=== PATIENT | male | born 1940 | race Caucasian/White ===

== ENCOUNTER 2020-05-08 09:10 | Emergency (ER) | payer MEDICARE, MEDICAID ==
[~2020-05-08] VITALS: Ht 172.7 cm; Wt 68.2 kg
[~2020-05-08 09:10] MED LIST: CALC500T62 PO; PRAV20TA4 PO; RANI150T7 PO; WARF2TAB30 PO
[2020-05-08 09:12] VITALS: BP 143/61
[2020-05-08 09:39] LABS: BASOPHILS % (AUTO) 0.2 % (0.0-2.0); EOSINOPHILS % (AUTO) 0 % (1.0-6.0); HEMATOCRIT 47.4 % (41-53); HEMOGLOBIN 16.1 g/dL (13.5-17.5); LYMPHOCYTES % (AUTO) 9.5 % (22.0-44.0); MEAN CORPUSCULAR HEMOGLOBIN 32.3 pg (26.0-34.0); MEAN CORPUSCULAR VOLUME 95 fL (80-100); MONOCYTES # (AUTO) 0.5 K/uL (0.1-1.0); MONOCYTES % (AUTO) 4.7 % (2.0-9.0); NEUTROPHILS # (AUTO) 8.7 K/uL (1.8-7.7); PLATELET COUNT (AUTO) 149 K/uL (150-450); RED BLOOD CELL COUNT(AUTO) 4.97 MIL/uL (4.50-5.90); RED CELL DISTRIBUTION WIDTH 13.8 % (11.5-14.5)
[2020-05-08 09:40] LABS: NEUTROPHILS % (AUTO) 85.6 % (40.0-70.0)
[2020-05-08 09:51] LABS: CALCIUM, TOTAL 8.8 mg/dL (8.8-10.5); CREATININE 1.33 mg/dL (0.60-1.30); POTASSIUM 4.5 mmol/L (3.5-5.1)
[2020-05-09] MEDS ORDERED: DIGO125T71 PO (11:36)
[2020-05-09] MEDS ORDERED: APIX5TAB PO (11:36)
[2020-05-09] MEDS ORDERED: METO-408 PO (11:36)
[2020-05-09] MEDS ORDERED: OS500 PO (11:36)
== END 2020-05-08 11:09 | disposition home or self-care (01) ==
LOC: EMS 09:14
DX: J06.9 Acute upper respiratory infection, unspecified (principal); Z20.822 Contact with and (suspected) exposure to COVID-19
CPT/HCPCS: 36415; 71045; 80048; 85025; 99284; U0003